=== PATIENT | female | born 1990 ===

== ENCOUNTER 2017-05-25 13:08 | Emergency (ER) | payer OTHER ==
--- NOTE | 2017-05-25 14:09 | UC ---
Back Pain HPI - HPI Summary HPI Summary: 27 yo female with about a week hx of right upper back pain hurts with lifting/movement she is right handed no know trauma works at a [email or web address] care - History of Current Complaint Chief Complaint: UCBackPain Stated Complaint: UPPER BACK PAIN Hx Obtained From: Patient Hx Last Menstrual Period: 05/23/17 Onset/Duration: Gradual Onset, Lasting Days Timing: Constant Severity Initially: Mild Severity Currently: Moderate Pain Intensity: 4 Pain Scale Used: 0-10 Numeric Back Pain: Is Diffuse Character: Aching, Throbbing, Spasmodic Aggravating: Movement, Lifting Alleviating: Rest - Allergies/Home Medications Allergies/Adverse Reactions: Allergies Allergy/AdvReac Type Severity Reaction Status Date / Time Kiwi Extract Allergy Swelling Verified 05/25/17 13:56 Bee stings Allergy Intermediate Swelling Uncoded 04/29/16 17:52 Home Medications: Home Medications Fexofenadine (NF) [Keyla 180 (NF)] 1 tab PO DAILY 05/25/17 [History Confirmed 05/25/17] Ibuprofen [Advil] 600 mg PO Q6HR PRN 05/25/17 [History Confirmed 05/25/17] PMH/Surg Hx/FS Hx/Imm Hx Previously Healthy: Yes - Surgical History Surgical History: Yes Surgery Procedure, Year, and Place: Bone grafts and dental implants 11/2006 - Family History Known Family History: Positive: Cardiac Disease, Hypertension - Social History Alcohol Use: Occasionally Substance Use Type: None Smoking Status (MU): Never Smoked Tobacco Have You Smoked in the Last Year: No - Immunization History Most Recent Tetanus Shot: 2005 Review of Systems Constitutional: Negative Skin: Negative Eyes: Negative ENT: Negative Respiratory: Negative Cardiovascular: Negative Gastrointestinal: Negative Genitourinary: Negative Motor: Negative Neurovascular: Negative Musculoskeletal: Myalgia Neurological: Negative Psychological: Negative All Other Systems Reviewed And Are Negative: Yes Physical Exam Triage Information Reviewed: Yes Appearance: Well-Appearing, No Pain Distress, Well-Nourished Vital Signs: Initial Vital Signs Temp 98.6 F 05/25/17 13:51 Pulse 92 05/25/17 13:51 Resp 16 05/25/17 13:51 BP 131/87 05/25/17 13:51 Pulse Ox 98 05/25/17 13:51 Vital Signs Reviewed: Yes Eyes: Positive: Conjunctiva Clear ENT: Positive: Hearing grossly normal. Negative: Nasal congestion, Nasal drainage, TMs normal, Trismus, Muffled/hoarse voice Neck: Positive: Supple, Nontender Respiratory: Positive: Lungs clear, Normal breath sounds, No respiratory distress, No accessory muscle use Cardiovascular: Positive: RRR, No Murmur Musculoskeletal: Positive: ROM Intact, No Edema Neurological Exam: Normal Psychological Exam: Normal Skin Exam: Normal Back Pain Course/Dx - Differential Dx/Diagnosis Provider Diagnoses: right trapezius strain. right rhomboid strain Discharge - Discharge Plan Condition: Stable Disposition: HOME Prescriptions: Cyclobenzaprine TAB* [Flexeril TAB*] 5 mg PO TID PRN #21 tab PRN Reason: Spasms Patient Education Materials: Thoracic Back Strain (ED) Referrals: Lluvia Harris MD [Primary Care Provider] - If Needed Additional Instructions: PT consult continue ibuprofen muscle relaxant may cause drowsiness recheck BP when better Images Head: 1 - tender Front/Back of Body, Lg (Rice): 1 - tender
[2017-05-25 14:34] VITALS: BP 131/87
== END 2017-05-25 14:34 | disposition home or self-care (01) ==
LOC: UCEAST 13:08
DX: S46.011A Strain of muscle(s) and tendon(s) of the rotator cuff of right shoulder, initial encounter (principal); X58.XXXA Exposure to other specified factors, initial encounter
CPT/HCPCS: 99212; G0463

== ENCOUNTER 2017-12-06 18:26 | Emergency (ER) | payer SELFPAY ==
[2017-12-06 18:41] VITALS: BP 136/81
--- NOTE | 2017-12-06 19:56 | RAD ---
INDICATION: Left knee pain COMPARISON: None TECHNIQUE: AP, lateral, tunnel, and sunrise views were obtained. FINDINGS: The bony structures, joint spaces, and soft tissues are normal for age. IMPRESSION: NEGATIVE EXAMINATION.
--- NOTE | 2017-12-06 20:16 | UC ---
Iwona Hawkins Gabriel, scribed for Saravanan Velazquez MD on 12/06/17 at 1922 . Knee Pain HPI - HPI Summary HPI Summary: This patient is a 27 year old F presenting to [facility] s/p fall that occurred at 0930 today. Patient reports left knee pain. The patient rates the pain 8/10 in severity. Symptoms aggravated by bending and standing. A symptom alleviated by nothing, patient has taken Tylenol with no relief. Patient was walking down carpeted stairs at her place of employment when her "knee went one way and her leg went the other." - History of Current Complaint Chief Complaint: UCLowerExtremity Stated Complaint: KNEE INJURY Time Seen by Provider: 12/06/17 19:15 Hx Obtained From: Patient Hx Last Menstrual Period: 11/17/17 Onset/Duration: Lasting Hours, Still Present Severity Initially: Severe Severity Currently: Severe Location Of Injury: left knee Pain Intensity: 8 Pain Scale Used: 0-10 Numeric Aggravating Factor(s): Movement, Weight Bearing Associated Signs And Symptoms: Positive: Negative Able to Bear Weight: Yes - Allergies/Home Medications Allergies/Adverse Reactions: Allergies Allergy/AdvReac Type Severity Reaction Status Date / Time Kiwi Extract Allergy Swelling Verified 12/06/17 18:41 Bee stings Allergy Intermediate Swelling Uncoded 12/06/17 18:41 PMH/Surg Hx/FS Hx/Imm Hx Previously Healthy: Yes Other History Of: Negative For: HIV, Hepatitis B, Hepatitis C - Surgical History Surgical History: Yes Surgery Procedure, Year, and Place: Bone grafts and dental implants 11/2006 - Family History Known Family History: Positive: Cardiac Disease, Hypertension, Other - cancer Negative: Diabetes, Renal Disease, Respiratory Disease - Social History Occupation: Employed Full-time Alcohol Use: Occasionally Substance Use Type: None Smoking Status (MU): Never Smoked Tobacco Have You Smoked in the Last Year: No - Immunization History Most Recent Tetanus Shot: 2005 Review of Systems Constitutional: Negative - fever Musculoskeletal: Other: - pain at left knee All Other Systems Reviewed And Are Negative: Yes Physical Exam Triage Information Reviewed: Yes Appearance: Well-Appearing, No Pain Distress, Obese Vital Signs: Initial Vital Signs Temp 98.4 F 12/06/17 18:37 Pulse 75 12/06/17 18:37 Resp 16 12/06/17 18:37 BP 136/81 12/06/17 18:37 Pulse Ox 100 12/06/17 18:37 Vital Signs Reviewed: Yes ENT: Positive: Normal ENT inspection Respiratory: Positive: No respiratory distress Cardiovascular: Positive: Pulses Normal Abdomen Description: Negative: Distended Musculoskeletal: Positive: Strength Intact, No Edema, Other: - left knee without effusion, no STS, no erythema. She does have some tenderness over the left medial condyle femur and left medial tibial plateau Neurological: Positive: Alert Psychological: Positive: Normal Response To Family Skin Exam: Normal Diagnostics - Radiology Knee Xray Radiology Interpretation Completed By: Radiologist - NEGATIVE EXAMINATION. ED physician has reviewed this radiology report. Knee Pain Course/Dx - Course Course Of Treatment: 27 yr old with knee sprain. crutches, immobilizer and follow up with ortho/pmd - Differential Dx/Diagnosis Provider Diagnoses: left knee sprain Discharge - Discharge Plan Condition: Good Disposition: HOME Patient Education Materials: Knee Sprain (ED), Knee Immobilizer (ED) Referrals: Lluvia Harris MD [Primary Care Provider] - 2 Days Jose Ruth MD [Medical Doctor] - The documentation as recorded by the Iwona cheng Gabriel accurately reflects the service I personally performed and the decisions made by , Saravanan Velazquez MD.
== END 2017-12-06 20:25 | disposition home or self-care (01) ==
LOC: UCEAST 18:26
DX: S83.92XA Sprain of unspecified site of left knee, initial encounter (principal); X50.1XXA Overexertion from prolonged static or awkward postures, initial encounter; Y93.89 Activity, other specified; Y92.89 Other specified places as the place of occurrence of the external cause; Y99.0 Civilian activity done for income or pay; E66.9 Obesity, unspecified
CPT/HCPCS: 99213; G0463